=== PATIENT | male | born 1970 | race Caucasian/White ===

== ENCOUNTER 2019-04-13 11:26 | Day surgery (SDC) | payer BC ==
[~2019-04-13] VITALS: Ht 188 cm; Wt 116.2 kg
[2019-04-13] MEDS ORDERED: OMEPRAZOLE (12:16)
[2019-04-13] MEDS ORDERED: IBUPROFEN PRN (12:17)
[2019-04-13 12:20] VITALS: Ht 188 cm; Wt 116.2 kg
[2019-04-13 12:24] VITALS: BP 115/69; PULSE 68; RESP 18
[2019-04-13] MEDS ORDERED: PROPOFOL 40 ML ONE (12:57)
[2019-04-13] MEDS ORDERED: LIDOCAINE 2% (SDV) 5 ML INJ ONE (12:57)
--- NOTE | 2019-04-13 13:05 | PREAC ---
Date/Time of Note Date/Time of Note DATE: 04/13/19 TIME: 13:05 Anesthesia Eval and Record Evaluation Time Pre-Procedure Interview DATE: 04/13/19 TIME: 13:05 Age 49 Sex male NPO: 8 hrs Preoperative diagnosis abdominal pain, reflux esophagitis Planned procedure EGD Past Medical History Past Medical History: Includes GI: GERD Surgery & Anesthesia Issues No known issue Meds Anticoagulation: No Beta Vinicius within 24 hr: No Reason Beta Vinicius not given: Pt. not on B-Vinicius Reported Medications [Ibuprofen Prn] No Conflict Check 04/13/19 [Omeprazole] No Conflict Check 04/13/19 Meds reviewed: Yes Allergies Coded Allergies: No Known Allergy (Unverified , 04/13/19) Allergies Reviewed: Yes Labs/Studies Labs Reviewed: Reviewed by anesthesiologist test: N/A Pre-procedure Exam Last vitals Vital Signs Date Temp Pulse Resp B/P (MAP) Pulse Ox O2 O2 Flow FiO2 Time Delivery Rate 04/13/19 97.6 68 18 115/69 96 Room Air 12:24 (84) Airway: Adequate mouth opening, Adequate thyromental dist Mallampati: Mallampati II Teeth: Normal (multiple missing molars) Lung: Normal Heart: Normal ASA Physical Status ASA physical status: 2 Emergency: None Planned Anesthetic General/MAC: MAC Pre-operative Attestations Prior to commencing anesthesia and surgery, the patient was re-evaluated, there was verification of: *The patient's identity *The results of appropriate recent lab work and preoperative vital signs *The above evaluation not changing prior to induction *Anesthetic plan, risk benefits, alternative and complications discussed with patient/family; questions answered; patient/family understands, accepts and wi shes to proceed. CHESTER MEDINA April 13, 2019 13:05
--- NOTE | 2019-04-13 13:23 | PAC ---
Date/Time of Note Date/Time of Note DATE: 04/13/19 TIME: 13:23 Post-Anesthesia Notes Post-Anesthesia Note Last documented vital signs Vital Signs Date Temp Pulse Resp B/P (MAP) Pulse Ox O2 O2 Flow FiO2 Time Delivery Rate 04/13/19 97.6 98 68 75 18 16 115/69 96 97 Room 12:24 132 (84) 108/ Air face 1 67 mask 6L Activity: WNL Respiratory function: WNL Cardiovascular function: WNL Mental status: Baseline Pain reasonably controlled: Yes Hydration appropriate: Yes Nausea/Vomiting absent: Yes CHESTER MEDINA April 13, 2019 13:23
[2019-04-13] MEDS ORDERED: ALBUTEROL 0.083% (NEB) 2.5 MG/3 ML AMP HHN PRN (13:30)
[2019-04-13] MEDS ORDERED: FENTAnyl 50 MCG/ML VIAL IV PRN (13:30)
[2019-04-13] MEDS ORDERED: ONDANSETRON 4 MG INJ IV PRN (13:30)
[2019-04-13] MEDS ORDERED: ACETAMINOPHEN 500 MG TAB PO PRN (13:30)
== END 2019-04-13 13:36 | disposition home or self-care (01) ==
LOC: GIL 11:26
PROVIDERS: ATTEND Internal Medicine Gastroenterology
DX: K44.9 Diaphragmatic hernia without obstruction or gangrene (principal); K21.0 Gastro-esophageal reflux disease with esophagitis
CPT/HCPCS: 43239; 88305; Z7610